=== PATIENT | female | born 1970 | race Caucasian/White ===

== ENCOUNTER 2023-12-18 23:24 | Emergency (ER) | payer BC, SELFPAY ==
[2023-12-18 23:30] VITALS: BP 127/86
[2023-12-18 23:52] VITALS: BP 129/72
[2023-12-19] VITALS: BP 124/76
--- NOTE | 2023-12-19 00:57 | ED.GENMED ---
History of Present Illness
General
Chief Complaint: Dehydration Symptoms
Source: patient
Time Seen by Provider: 12/19/23 00:04
History of Present Illness
History of Present Illness:
53-year-old female presents to the emergency room complaining of nausea, vomiting, dehydration. Patient states that [place] [employer] [place] this [place]. It was very hot with temperatures in the mid 90s. She felt like she became dehydrated
and passed out. After passing out she developed nausea and has been vomiting. She has not been able to keep any liquids down. Patient states she has a history of gastric bypass surgery. Up until the fluids came she was feeling totally fine.
Past History
Past History
ED Past Medical History: Other (migraine)
Social History
Personal:
Phy Exam
Physical Exam
Physical Exam:
General: Awake, Alert, Oriented X3. No acute distress.
Vitals: unremarkable
Head: Atraumatic
Eyes: Pupils equal, EOMI
Throat: Airway intact, no exudates, dry mucosa
Neck: Trachea midline
Lungs: Clear and equal b/l
Heart: Regular rate, no murmurs
Abd: Soft, mild upper abdominal pain to palpation, no pulsatile mass
Neuro: Nonfocal
Skin: Warm, dry, no rash
Extremities: pulses equal b/l, no edema
Course
Orders/Labs/Results
Orders:
Orders
12/18/23 23:32
EKG [Electrocardiogram (*1)] Urgent
Reason for Study: Syncope
EKG- Treatment ONCE
12/19/23 00:48
Ondansetron Injectable [Zofran] 4 mg .ROUTE .STK-MED ONE
12/19/23 00:57
0.9% Sodium Chloride 1000 ml [Nss] 1,000 ml IV BOLUS
Ondansetron Injectable [Zofran] 4 mg IV NOW STA
12/19/23 01:11
CBC/With Diff [Complete Blood Count/With Diff] Urgent
CMP [Comprehensive Metabolic Panel] Urgent
Abnormal Lab Results
12/19/23
01:11
WBC 15.9 H 10^3/uL
(4.8-10.8)
Abs Immat Gran (auto) 0.1 H 10^3/uL
(0-0.05)
Absolute Neuts (auto) 14.8 H 10^3/uL
(1.4-6.5)
Absolute Lymphs (auto) 0.5 L 10^3/uL
(1.2-3.4)
Neutrophils % 92.9 H %
(42.2-75.2)
Lymphocytes % 2.8 L %
(20.5-51.1)
BUN 23 H mg/dl
(7-17)
Glucose 134 H mg/dl
(70-99)
AST 44 H U/L
(14-36)
ALT 60 H U/L
(0-35)
12/19/23 01:11
12/19/23 01:11
Vital Signs
Initial and Last Documented VS:
Initial Vital Signs
Temp Pulse Resp BP Pulse Ox
99.7 F 97 14 127/86 98
12/18/23 23:30 12/18/23 23:30 12/18/23 23:30 12/18/23 23:30 12/18/23 23:30
Last Documented Vital Signs
Temp Pulse Resp BP Pulse Ox
99.7 F 93 24 116/62 94
12/18/23 23:30 12/19/23 02:15 12/19/23 02:15 12/19/23 02:00 12/19/23 02:15
MDM/Problems Addressed
Differential Diagnosis Includes:
dehydration, viral illness, pancreatitis
MDM/Problems Addressed:
Patient presents with persistent nausea vomiting. She feels better after IV hydration and antiemetics. Patient stable for discharge home
*Pulse Oximetry
Patient hypoxic: no
*EKG
Interpreted by ED Provider?: Yes
Interpretation: normal
Heart Rate: 84
Rate: normal
Rhythm: sinus and other
Upper Tract: normal axis
Interval: normal interval
QRS Pattern: normal QRS
Ischemia: no ischemia
*Career Placement Services Counselor Interpretation
Rate: normal
Interpretation: normal
Rhythm: sinus
*Critical Care Note
Total Time (30-74mins, 75-104mins- exclusive of procedures): Not Applicable
ED Attending Note
-
Portions of this chart may have been created with voice recognition software.� Occasional wrong word or��sound alike� substitutions may have occurred due to the inherent limitations of voice recognition software.
Discharge Plan
Departure
Patient Disposition: Home (Routine Discharge)
Date of Disposition: 12/19/23
Time of Disposition: 02:27
Patient with high blood pressure during this ER visit?: No
Condition: Good
Discharge Problem:
Acute nausea with nonbilious vomiting, Acute dehydration, Heat exhaustion
Instructions: Dehydration, Adult (DC), Heat Exhaustion and Heat Stroke (DC)
Prescriptions:
No Action
No Meds [No Current Medications]
0
[id number] 1 TAB tablet
1 tab PO Q6HPRN PRN (Reason: headache) Qty: 20 0RF
Referrals:
Eugenio Mcnamara DO [Family Provider] -
Interventions
Interventions:
*Risk Screen - Suicide Last Done: 12/18/23 23:30
*General Assessment Last Done: 12/18/23 23:30
*Neglect/Abuse Screening Last Done: 12/18/23 23:30
ED- Fall Risk Assessment Last Done: 12/19/23 02:00
*Nursing Disposition Last Done: 12/19/23 03:00
ED- Cardiac Assessment Last Done: 12/19/23 00:00
ED- Neurological Assessment Last Done: 12/19/23 00:00
ED- Pulmonary Assessment Last Done: 12/19/23 00:00
Discharge Date and Time
Discharge Date/Time: 12/19/23 03:11
Print Language: YI
[2023-12-19] MEDS: ZOFRAN 4 MG IV (01:04)
[2023-12-19] MEDS: NSS 1000 IV (01:05)
[2023-12-19 01:16] LABS: % Basophils 0.3 % (0-2); % Eosinophils 0.4 % (0-6); % Immature Granulocytes 0.4 % (0-0.5); % Lymphocytes 2.8 % (20.5-51.1); % Monocytes 3.2 % (1.7-9.3); % Neutrophils 92.9 % (42.2-75.2); Absolute Eosinophils 0.1 10^3/uL (0-0.7); Absolute Immature Granulocytes 0.1 10^3/uL (0-0.05); Absolute Lymphocytes 0.5 10^3/uL (1.2-3.4); Absolute Monocytes 0.5 10^3/uL (0.1-0.6); Absolute Neutrophils 14.8 10^3/uL (1.4-6.5); Hematocrit 39.2 % (37.0-47.0); Hemoglobin 13.7 g/dL (12.0-16.0); Mean Corp Hgb Conc. 34.9 g/dL (33.0-37.0); Mean Corpuscular Hgb 28.4 pg (27.0-31.0); Mean Corpuscular Volume 81.3 fL (81.0-99.0); Mean Platelet Volume 9.2 fL (7.4-10.4); Nucleated Red Blood Cells % 0 %; Platelet Count 317 10^3/uL (130-400); Red Blood Cell Count 4.82 10^6/uL (4.20-5.40); Red Cell Dist. Width 12.1 % (11.5-14.5); White Blood Cell Count 15.9 10^3/uL (4.8-10.8)
[2023-12-19 01:31] LABS: ALT (SGPT) 60 U/L (0-35); AST (SGOT) 44 U/L (14-36); Albumin 4.6 g/dl (3.5-5.0); Alkaline Phosphatase 119 U/L (38-126); Blood Urea Nitrogen 23 mg/dl (7-17); Calcium 10.1 mg/dl (8.4-10.2); Carbon Dioxide 23 mmol/L (22-30); Chloride 104 mmol/L (98-107); Glucose 134 mg/dl (70-99); Potassium 4.6 mmol/L (3.5-5.1); Sodium 138 mmol/L (135-145); Total Bilirubin 0.6 mg/dl (0.2-1.3); Total Protein 7.5 g/dl (6.3-8.2); eGFR > 60.00
[2023-12-19 02:00] VITALS: BP 116/62
== END 2023-12-19 03:11 | disposition home or self-care (01) ==
LOC: EMR 23:24
PROVIDERS: EMERGENCY PHYSICIAN Emergency Medicine; FAMILY PHYSICIAN Family Medicine
DX: R11.2 Nausea with vomiting, unspecified (principal); E86.0 Dehydration; T67.5XXA Heat exhaustion, unspecified, initial encounter
CPT/HCPCS: 99284; 96374; 96361; 80053; 85025; 93005

== ENCOUNTER 2024-03-08 19:32 | Emergency (ER) | payer BC, SELFPAY ==
[2024-03-08 19:35] VITALS: BP 166/100
[2024-03-08 20:13] VITALS: BP 146/86
[2024-03-08 20:20] VITALS: BP 146/86; BMI 36.1
[2024-03-08 20:32] LABS: % Basophils 0.6 % (0-2); % Eosinophils 0.8 % (0-6); % Immature Granulocytes 0.2 % (0-0.5); % Lymphocytes 39.6 % (20.5-51.1); % Monocytes 8.7 % (1.7-9.3); % Neutrophils 50.1 % (42.2-75.2); Absolute Lymphocytes 2.1 10^3/uL (1.2-3.4); Absolute Monocytes 0.5 10^3/uL (0.1-0.6); Absolute Neutrophils 2.6 10^3/uL (1.4-6.5); Hemoglobin 12.5 g/dL (12.0-16.0); Mean Corp Hgb Conc. 33.8 g/dL (33.0-37.0); Mean Corpuscular Hgb 27.8 pg (27.0-31.0); Mean Corpuscular Volume 82.2 fL (81.0-99.0); Mean Platelet Volume 9.3 fL (7.4-10.4); Nucleated Red Blood Cells % 0 %; Platelet Count 283 10^3/uL (130-400); Red Cell Dist. Width 12.2 % (11.5-14.5); White Blood Cell Count 5.2 10^3/uL (4.8-10.8)
[2024-03-08 20:49] LABS: ALT (SGPT) 32 U/L (0-35); AST (SGOT) 32 U/L (14-36); Albumin 4.4 g/dl (3.5-5.0); Alkaline Phosphatase 131 U/L (38-126); Blood Urea Nitrogen 15 mg/dl (7-17); Calcium 9.8 mg/dl (8.4-10.2); Carbon Dioxide 29 mmol/L (22-30); Chloride 101 mmol/L (98-107); Estimated Creatinine Clearance 98 ml/min; Glucose 120 mg/dl (70-99); Potassium 4.6 mmol/L (3.5-5.1); Sodium 141 mmol/L (135-145); Total Bilirubin 0.2 mg/dl (0.2-1.3); Total Protein 7.1 g/dl (6.3-8.2); eGFR > 60.00
--- NOTE | 2024-03-08 22:02 | ED.GENMED ---
History of Present Illness
General
Chief Complaint: Dizziness
Source: patient
Exam Limitations: none
Time Seen by Provider: 03/08/24 20:48
Nursing documentation reviewed up to this point in time: agreed with
History of Present Illness
History of Present Illness:
Patient is a 54-year-old female who presents to the ER for evaluation of dizziness. Patient reports earlier this afternoon around 2:00 she was sitting at her desk when she suddenly had a sensation that the room was spinning and she was very dizzy
and nauseous. She did drive herself home however had a pullman clerk several times. She did vomit with this. She reports she had a headache this weekend several days ago but has not had a headache since. She denies any recent trauma. Denies any
neck pain. Denies any chiropractor manipulation. She denies any difficulty speaking she denies any upper or lower extremity numbness tingling weakness. She reports she feels dizzy now but the room is not currently spinning. She denies any recent
fever chills nasal congestion cough cold symptoms.
Past History
Past History
ED Past Medical History: Other (migraine)
Social History
Personal:
Review of Systems
Review of Systems
Allergies reviewed?: Yes
All Other Systems: ROS reviewed and negative except as documented in HPI and ROS
Constitutional: Reports no symptoms; Denies fever, fatigue or chills
Respiratory: Reports no symptoms
Cardiac: Reports no symptoms
ABD/GI: Reports no symptoms
Musculoskeletal: Reports no symptoms
Skin: Reports no symptoms
Neurological: Reports dizzy; Denies headache, weakness or numbness
Hematologic/Lymphatic: Reports no symptoms
Psychiatric: Reports no symptoms
Phy Exam
General Physical Exam
General Presentation: no apparent distress
General age: appears stated age
General Skin: warm and dry
General Habitus: normal
General Mental: alert
General Hydration: appears well hydrated
Eye Exam
Eye Exam: PERRL and EOMI
Eye Exam General: PERRL: bilateral and EOM intact: bilateral
Pupil Exam: Bilateral: round and reactive
Cardiovascular Exam
Cardiovascular Exam: regular rate/rhythm, no murmur and normal peripheral pulses
Neurological Exam
Neurological Exam: alert, oriented x3, no motor deficits, no sensory deficits and speech normal
Cerebellar
Cerebellar Function: normal finger to nose
Musculoskeletal Exam
Musculoskeletal Exam: full ROM
Skin Exam
Skin Exam: normal color and warm/dry
Psychiatric Exam
Psychiatric Exam: normal mood/affect
Course
Orders/Labs/Results
Orders:
Orders
03/08/24 19:37
ECG [Electrocardiogram (*1)] Urgent
Reason for Study: Vertigo / Dizzy
EKG- Treatment ONCE
03/08/24 20:19
Cardiac Monitoring- Treatment ONCE
IV Insert/Care/Rem.- Treatment PRN
Vital Signs As Directed
Frequency: Other
03/08/24 20:26
Complete Blood Count/With Diff Urgent
Comprehensive Metabolic Panel Urgent
03/08/24 22:10
CT Head W/o Iv Contrast Urgent
Comment:
Reason For Exam: new onset vertigo
Meclizine [Antivert] 25 mg PO NOW STA
Ondansetron Injectable [Zofran] 4 mg IV NOW STA
03/08/24 22:15
0.9% Sodium Chloride 1000 ml [Nss] 1,000 ml IV BOLUS
03/08/24 23:45
diazePAM [Valium Injection] 2 mg IV NOW STA
Abnormal Lab Results
03/08/24
20:26
Glucose 120 H mg/dl
(70-99)
Alkaline Phosphatase 131 H U/L
(38-126)
03/08/24 20:26
03/08/24 20:26
Vital Signs
Initial and Last Documented VS:
Initial Vital Signs
Temp Pulse Resp BP Pulse Ox
98.4 F 66 20 166/100 98
03/08/24 19:35 03/08/24 19:35 03/08/24 19:35 03/08/24 19:35 03/08/24 19:35
Last Documented Vital Signs
Temp Pulse Resp BP Pulse Ox
98.4 F 63 18 134/88 98
03/08/24 19:35 03/08/24 23:45 03/08/24 23:45 03/08/24 23:00 03/08/24 23:45
MDM/Problems Addressed
Differential Diagnosis Includes:
Not limited to dizziness, vertigo
MDM/Problems Addressed:
Symptoms are consistent with benign air. Patient awake alert no acute distress feeling better from meclizine. She has no present headache. She has a normal neurologic exam.
On reexam and reassessment she got up to ambulate and felt a little dizzy however she reports the spinning improved after couple minutes and she feels that she is much better than how she presented to the ER. She feels well after go home and wants
to go home. Initially Valium was offered however she declines simply wants to take meclizine at home discussed close outpatient follow-up family doctor
*Radiology
Radiology exam reviewed: radiology read reviewed
*Pulse Oximetry
Patient hypoxic: no
*Critical Care Note
Total Time (30-74mins, 75-104mins- exclusive of procedures): Not Applicable
ED Attending Note
-
Portions of this chart may have been created with voice recognition software.� Occasional wrong word or��sound alike� substitutions may have occurred due to the inherent limitations of voice recognition software.
Discharge Plan
Departure
Patient Disposition: Home (Routine Discharge)
Date of Disposition: 03/09/24
Time of Disposition: 00:12
Patient with high blood pressure during this ER visit?: Yes
Condition: Fair
Covid-19: Not Applicable
Discharge Problem:
Vertigo
Instructions: BLOOD PRESSURE
Prescriptions:
New
meclizine 25 mg tablet
25 mg PO TID PRN (Reason: dizziness) Qty: 10 0RF
No Action
No Meds [No Current Medications]
0
[id number]-[id number] 1 TAB tablet
1 tab PO Q6HPRN PRN (Reason: headache) Qty: 20 0RF
Referrals:
Eugenio Mcnamara DO [Family Provider] -
Activity Restrictions/Additional Instructions:
As discussed a prescription for meclizine was sent to your pharmacy take as directed every 8 hours as needed
Follow-up with your family doctor in the next several days for reevaluation .
return if any worsening of symptoms
Interventions
Interventions:
*Risk Screen - Suicide Last Done: 03/08/24 19:35
*General Assessment Last Done: 03/08/24 20:20
*Neglect/Abuse Screening Last Done: 03/08/24 19:35
*ED COVID-19 Vaccine History Last Done: 03/08/24 20:20
ED- Neurological Assessment Last Done: 03/08/24 20:20
Discharge Date and Time
Print Language: RWANDAN
[2024-03-08] MEDS: NSS 1000 IV (22:23)
[2024-03-08] MEDS: ANTIVERT 25 MG PO (22:23)
[2024-03-08] MEDS: ZOFRAN 4 MG IV (22:23)
[2024-03-08 22:26] VITALS: BP 133/84
[2024-03-08 23:00] VITALS: BP 134/88
== END 2024-03-09 00:57 | disposition home or self-care (01) ==
LOC: EMR 19:32
PROVIDERS: Emergency Medicine; EMERGENCY PHYSICIAN Emergency Medicine; FAMILY PHYSICIAN Family Medicine
DX: R42 Dizziness and giddiness (principal); R03.0 Elevated blood-pressure reading, without diagnosis of hypertension
CPT/HCPCS: 99285; 96374; 96361; 70450; 80053; 85025; 93005